=== PATIENT | male | born 1950 | race Hispanic/Latino ===

== ENCOUNTER 2017-07-26 10:36 | Outpatient (CLI) | payer OTHER ==
--- NOTE | 2017-07-26 11:59 | ULT ---
PELVIC SONOGRAM: History: Pelvic pain. Possible hernia. Urinary retention. FINDINGS: Sonographic evaluation of the left groin and left lower pelvis in region of pain shows no bulging of abdominal/pelvic contents. Urinary bladder has a normal appearance with bilateral ureteral jets. Pros cheng gland is measured at 3.4 x 4.3 x 3.3 cm diameters. No free fluid is apparent. Post void urinary bladder volume is calculated at 47 cc. IMPRESSION: 1. No evidence of mass or hernia in region of left pelvic pain. 2. Prostate gland is of normal size when measured sonographically. Post void bladder volume is within normal limits. POS: [facility]
== END 2017-07-26 10:37 | disposition home or self-care (01) ==
LOC: ULT 10:36
PROVIDERS: ATTEND Family Medicine
DX: R10.32 Left lower quadrant pain (principal)
CPT/HCPCS: 76856

== ENCOUNTER 2021-04-06 15:19 | Outpatient (CLI) | payer OTHER | END 2021-04-06 15:20 | disposition home or self-care (01) | LOC: BICULT 15:19 | PROVIDERS: ATTEND Family Medicine | DX: R94.6 Abnormal results of thyroid function studies (principal); E04.2 Nontoxic multinodular goiter | CPT/HCPCS: 76536 ==